=== PATIENT | female | born 1970 | race Caucasian/White ===

== ENCOUNTER 2018-03-08 14:40 | Emergency (ER) | payer BC ==
[2018-03-08 15:06] VITALS: BP 96/47
[2018-03-08] MEDS ORDERED: Ketorolac 60 MG/2 ML SDV IM ONE (15:32)
[2018-03-08] MEDS ORDERED: diphenhydrAMINE 50 MG/ML SDV IM ONE (15:33)
[2018-03-08] MEDS ORDERED: Metoclopramide 10 MG/2 ML SDV IM ONE (15:33)
--- NOTE | 2018-03-08 15:38 | EDM.PDOC ---
ED HPI GENERAL MEDICAL PROBLEM - General Chief Complaint: Headache Stated Complaint: MIGRAINE Time Seen by Provider: 03/08/18 15:25 Source of Information: Reports: Patient History Limitations: Reports: No Limitations - History of Present Illness INITIAL COMMENTS - FREE TEXT/NARRATIVE: Has had a migraine for the last 4 days. Did try her imitrex last night without any relief. Contacted her PCP who is Dr. Hung in [place] as he manages her suboxone. He told her that she could not use that any longer. She has tried some OTC meds without improvement. Migraine is her typical migraine that effects her left eye and left side of head. Does have some photophobia and nausea with it. Onset: Gradual Duration: Day(s): (4) Location: Reports: Head Quality: Reports: Pressure, Throbbing Severity: Severe Associated Symptoms: Reports: Headaches, Nausea/Vomiting. Denies: Fever/Chills Headache Pain Score (Numeric/FACES): 8 - Related Data Allergies Allergy/AdvReac Type Severity Reaction Status Date / Time avocado Allergy Anaphylactic Verified 05/12/16 20:50 Shock Latex, Natural Rubber Allergy Hives Verified 05/12/16 20:50 morphine Allergy Hallucinati Verified 05/12/16 20:50 ons venom-honey bee Allergy Anaphylactic Verified 05/12/16 20:50 [bee venom (honey bee)] Shock Home Meds: Home Meds Citalopram Hydrobromide [Celexa] 40 mg PO DAILY 02/01/15 [History] Cyanocobalamin/Folic AC/Vit B6 [Folbee] 1 each PO DAILY 02/01/15 [History] Cyclobenzaprine [Flexeril] 10 mg PO TID PRN 02/01/15 [History] EPINEPHrine [Epipen] 0.3 mg IM ONETIME PRN 02/01/15 [History] Gabapentin [Neurontin] 600 mg PO TID 02/01/15 [History] Hydrochlorothiazide 25 mg PO DAILY 02/01/15 [History] LORazepam [Ativan] 0.5 mg PO Q6H PRN 02/01/15 [History] Methylphenidate HCl 10 - 20 mg PO BID 02/01/15 [History] Methylphenidate HCl 20 mg PO DAILY PRN 02/01/15 [History] Multivitamin [Multivitamins] 1 each PO DAILY 02/01/15 [History] Ondansetron 4 mg PO Q4H PRN 02/01/15 [History] traZODone 50 - 100 mg PO BEDTIME 02/01/15 [History] Desipramine HCl 25 mg PO DAILY 06/24/15 [History] Ascorbic Acid [Vitamin C] 500 mg PO DAILY 01/15/16 [History] Buprenorphine HCl/Naloxone HCl [Suboxone 4 mg-1 mg Sl Film] 4 mg PO BID [History] Chromium Picolinate 1,000 mcg PO DAILY 01/15/16 [History] Escitalopram Oxalate [Lexapro] 20 mg PO DAILY 01/15/16 [History] Past Medical History Cardiovascular History: Reports: Hypertension Gastrointestinal History: Reports: Chronic Constipation Genitourinary History: Reports: UTI, Recurrent 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: Reports: Endometriosis, Musculoskeletal History: Reports: Amputation Other Musculoskeletal History: phantom pain Psychiatric History: Reports: Addiction, Anxiety, Depression Endocrine/Metabolic History: Reports: Obesity/BMI 30+, Vitamin D Deficiency - Past Surgical History GI Surgical History: Reports: Bariatric Procedure, Hernia, Abdominal, Amy Fundoplication Female Surgical History: Reports: Section, Hysterectomy Social & Family History - Tobacco Use Smoking Status *Q: Former Smoker - Living Situation & Occupation Living situation: Reports: , with Family Occupation: Employed ED ROS GENERAL - Review of Systems Review Of Systems: See Below Constitutional: Denies: Fever, Chills HEENT: Reports: Vision Change (left eye) Respiratory: Reports: No Symptoms Cardiovascular: Reports: No Symptoms GI/Abdominal: Reports: Nausea Musculoskeletal: Reports: No Symptoms Skin: Reports: No Symptoms Neurological: Reports: Headache. Denies: Numbness, Tingling - Physical Exam Exam: See Below Exam Limited By: No Limitations General Appearance: Alert, WD/WN, Moderate Distress Ears: Normal External Exam, Normal Canal, Normal TMs Nose: Normal Inspection Throat/Mouth: Normal Inspection, Normal Oropharynx Head Exam: Atraumatic, Normocephalic Neck: Normal Inspection, Supple, Non-Tender, Full Range of Motion Respiratory/Chest: No Respiratory Distress, Lungs Clear, Normal Breath Sounds GI/Abdominal: Normal Bowel Sounds Extremities: No Pedal Edema Skin Exam: Warm, Dry, Intact Course - Vital Signs Last Recorded V/S: Last Vital Signs Temp 98.1 F 03/08/18 15:04 Pulse 85 03/08/18 15:04 Resp 20 03/08/18 15:04 BP 96/47 L 03/08/18 15:04 Pulse Ox 99 03/08/18 15:04 Departure - Departure Time of Disposition: 15:41 Disposition: Home, Self-Care 01 Condition: Good Clinical Impression: Migraine - Discharge Information *PRESCRIPTION DRUG MONITORING PROGRAM REVIEWED*: No *COPY OF PRESCRIPTION DRUG MONITORING REPORT IN PATIENT TIANA: No Instructions: Migraine Headache, [id number] Additional Instructions: 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
== END 2018-03-08 16:35 | disposition home or self-care (01) ==
LOC: CC.ED 14:40
DX: G43.909 Migraine, unspecified, not intractable, without status migrainosus (principal); I10 Essential (primary) hypertension; F41.9 Anxiety disorder, unspecified; F32.9 Major depressive disorder, single episode, unspecified; Z87.891 Personal history of nicotine dependence; Z91.040 Latex allergy status; Z88.5 Allergy status to narcotic agent; Z91.030 Bee allergy status; Z79.899 Other long term (current) drug therapy
CPT/HCPCS: 96372; 99283; J1200; J1885; J2765

== ENCOUNTER 2018-03-31 12:18 | Emergency (ER) | payer BC ==
[2018-03-31] MEDS ORDERED: Pantoprazole 40 MG Tab.CR PO ONE (12:19)
[2018-03-31] MEDS ORDERED: Nitroglycerin 0.4 MG Tab.SL SL ONE (12:32)
--- NOTE | 2018-03-31 12:56 | EDM.PDOC ---
ED HPI GENERAL MEDICAL PROBLEM - General Chief Complaint: Chest Pain Stated Complaint: CHEST PAIN Time Seen by Provider: 03/31/18 12:50 - History of Present Illness INITIAL COMMENTS - FREE TEXT/NARRATIVE: Essie is a 47 year old female who presents to the ED with c/o left sided chest pain. She reports the pain started yesterday morning. She describes the pain as sharp. She reports she has also had some right shoulder pain and tarun-oral paresthesias. These have resolved. She reports for the past week or so she has been nauseated and had a decreased appetite. Has had some occasional dizziness. Denies any fever, chills, vomiting, diarrhea, constipation, shortness of breath. Denies any blood in her stools. She denies any significant cardiovascular history. 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 Does gave history of PTSD and depression as well. Recently diagnosed with hypothyroidism. Onset Date: 03/30/18 Onset Time: 04:00 Duration: Intermittent Location: Reports: Chest Quality: Reports: Sharp Severity: Moderate Improves with: Reports: None Worsens with: Reports: None Associated Symptoms: Reports: Chest Pain, Loss of Appetite, Nausea/Vomiting ( nausea, no vomiting). Denies: Confusion, Cough, cough w sputum, Diaphoresis, Fever/Chills, Headaches, Rash, Seizure, Shortness of Breath, Syncope, Weakness Right Chest Pain Score (Numeric/FACES): 6 - Related Data Allergies Allergy/AdvReac Type Severity Reaction Status Date / Time avocado Allergy Anaphylactic Verified 03/31/18 12:59 Shock Latex, Natural Rubber Allergy Hives Verified 03/31/18 12:59 morphine Allergy Hallucinati Verified 03/31/18 12:59 ons venom-honey bee Allergy Anaphylactic Verified 03/31/18 12:59 [bee venom (honey bee)] Shock Home Meds: Home Meds Cyclobenzaprine [Flexeril] 10 mg PO TID PRN 02/01/15 [History] EPINEPHrine [Epipen] 0.3 mg IM ONETIME PRN 02/01/15 [History] Gabapentin [Neurontin] 600 mg PO BID 02/01/15 [History] Hydrochlorothiazide 25 mg PO DAILY 02/01/15 [History] Methylphenidate HCl 10 - 20 mg PO BID 02/01/15 [History] Multivitamin [Multivitamins] 1 each PO DAILY 02/01/15 [History] Ondansetron 4 mg PO Q4H PRN 02/01/15 [History] traZODone 50 - 100 mg PO BEDTIME 02/01/15 [History] Buprenorphine HCl/Naloxone HCl [Suboxone 4 mg-1 mg Sl Film] 8 mg PO TID [History] Chromium Picolinate 1,000 mcg PO DAILY 01/15/16 [History] Escitalopram Oxalate [Lexapro] 20 mg PO DAILY 01/15/16 [History] Black Cohosh 540 mg PO DAILY 03/31/18 [History] Omeprazole 20 mg PO DAILY 03/31/18 [History] Pantoprazole Sodium [Protonix] 40 mg PO DAILY 42 Days #42 tablet. 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: Reports: Endometriosis, Musculoskeletal History: Reports: Amputation Other Musculoskeletal History: phantom pain Psychiatric History: Reports: Addiction, Anxiety, Depression Endocrine/Metabolic History: Reports: Obesity/BMI 30+, Vitamin D Deficiency - Past Surgical History GI Surgical History: Reports: Bariatric Procedure, Hernia, Abdominal, Amy Fundoplication Female Surgical History: Reports: Section, Hysterectomy Social & Family History - Living Situation & Occupation Living situation: Reports: , with Family Occupation: Employed ED [facility] GENERAL - Review of Systems Review Of Systems: See Below Constitutional: Reports: Decreased Appetite. Denies: Fever, Chills, Weakness, Fatigue HEENT: Reports: No Symptoms Respiratory: Reports: No Symptoms. Denies: Shortness of Breath, Wheezing, Pleuritic Chest Pain, Cough, Sputum, Hemoptysis Cardiovascular: Reports: Chest Pain, Lightheadedness. Denies: Blood Pressure Problem, Dyspnea on Exertion, Edema, Orthopnea, Palpitations, Syncope Endocrine: Reports: Fatigue GI/Abdominal: Reports: Abdominal Pain (epigastric), Decreased Appetite, Nausea. Denies: Black Stool, Bloody Stool, Constipation, Diarrhea, Hematemesis, Vomiting : Reports: No Symptoms. Denies: Dysuria, Frequency, Urgency Musculoskeletal: Reports: Shoulder Pain (right) Skin: Reports: No Symptoms Neurological: Reports: Dizziness. Denies: Headache, Numbness, Tingling, Weakness Psychiatric: Reports: Anxiety, Depression Hematologic/Lymphatic: Reports: No Symptoms Immunologic: Reports: No Symptoms ED EXAM, GENERAL - Physical Exam Exam: See Below Exam Limited By: No Limitations General Appearance: Alert, WD/WN, No Apparent Distress, Anxious Eye Exam: Bilateral Eye: EOMI, Normal Fundi, Normal Inspection, PERRL Ears: Normal External Exam, Normal Canal, Hearing Grossly Normal, Normal TMs Nose: Normal Inspection, Normal Mucosa, No Blood Throat/Mouth: Normal Inspection, Normal Lips, Normal Teeth, Normal Gums, Normal Oropharynx, Normal Voice, No Airway Compromise Head: Atraumatic, Normocephalic Neck: Normal Inspection, Supple, Non-Tender, Full Range of Motion Respiratory/Chest: No Respiratory Distress, Lungs Clear, Normal Breath Sounds, No Accessory Muscle Use, Chest Non-Tender Cardiovascular: Normal Peripheral Pulses, Regular Rate, Rhythm, No Edema, No Gallop, No JVD, No Murmur, No Rub, Tachycardia Peripheral Pulses: 2+: Dorsalis Pedis (L), Dorsalis Pedis (R) GI/Abdominal: Normal Bowel Sounds, Soft, No Organomegaly, No Distention, No Abnormal Bruit, No Mass, Tender (epigastric area) Back Exam: Normal Inspection, Full Range of Motion, NT Extremities: Normal Inspection, Normal Range of Motion, Non-Tender, Normal Capillary Refill, No Pedal Edema Neurological: Alert, Oriented, CN II-XII Intact, Normal Cognition, Normal Gait, Normal Reflexes, No Motor/Sensory Deficits Psychiatric: Anxious, Tearful Skin Exam: Warm, Dry, Intact, Normal Color, No Rash Lymphatic: No Adenopathy Course - Vital Signs Last Recorded V/S: Last Vital Signs Temp 99.3 F 03/31/18 12:20 Pulse 98 03/31/18 13:10 Resp 18 03/31/18 12:35 BP 113/86 03/31/18 13:10 Pulse Ox 97 03/31/18 12:35 - Orders/Labs/Meds Orders: Active Orders 24 hr Category Date Time Status Chest 2V [CR] Stat Exams 03/31/18 13:11 Taken Pantoprazole [ProTONIX IV] Med 03/31/18 13:30 Active 40 mg IVPUSH Q24H Medication Orders Pantoprazole Sodium (Protonix Iv) 40 mg IVPUSH Q24H YESENIA Last Admin: 03/31/18 13:28 Dose: 40 mg Labs: Laboratory Tests 03/31/18 03/31/18 03/31/18 Range/Units 12:27 12:27 12:27 WBC 10.5 H (5.0-10.0) 10^3/uL RBC 4.65 (4.00-5.50) 10^6/uL Hgb 13.6 (12.0-16.0) g/dL Hct 38.5 (37.0-47.0) % MCV 82.8 (82.0-94.0) fL MCH 29.2 (27.0-32.0) pg MCHC 35.3 (33.0-38.0) g/dL RDW Coeff of Sharon 12.4 (11.0-15.0) % Plt Count 309 (150-400) 10^3/uL Neut % (Auto) 46.1 (35-85) % Lymph % (Auto) 44.6 (10-55) % Walker % (Auto) 6.7 (0-16) % Eos % (Auto) 2.3 (0-5) % Baso % (Auto) 0.3 (0-3) % Neut # (Auto) 4.83 (1.80-7.00) 10^3/uL Lymph # (Auto) 4.67 (1.00-4.80) 10^3/uL Walker # (Auto) 0.70 (0.00-0.80) 10^3/uL Eos # (Auto) 0.24 (0.00-0.45) 10^3/uL Baso # (Auto) 0.03 10^3/uL PT 9.7 (9.7-12.3) SEC INR 0.93 (0.92-1.18) Sodium 141 (136-145) mEq/L Potassium 3.0 L D (3.5-5.0) mEq/L Chloride 102 (98-106) mEq/L Carbon Dioxide 30 (21-32) mmol/L BUN 13 D (7-18) mg/dL Creatinine 0.9 (0.6-1.0) mg/dL Est Cr Clr Drug Dosing 75.15 mL/min Estimated GFR (MDRD) > 60 (>=60) mL/min Glucose 106 H (75-99) mg/dL Calcium 8.9 (8.4-10.1) mg/dL Lactate Dehydrogenase 152 (100-190) U/L Creatine Kinase 101 (21-215) U/L Troponin I < 0.017 (0.00-0.06) ng/mL TSH, Ultra Sensitive (0.36-5.60) uIU/mL 03/31/18 Range/Units 12:46 WBC (5.0-10.0) 10^3/uL RBC (4.00-5.50) 10^6/uL Hgb (12.0-16.0) g/dL Hct (37.0-47.0) % MCV (82.0-94.0) fL MCH (27.0-32.0) pg MCHC (33.0-38.0) g/dL RDW Coeff of Sharon (11.0-15.0) % Plt Count (150-400) 10^3/uL Neut % (Auto) (35-85) % Lymph % (Auto) (10-55) % Walker % (Auto) (0-16) % Eos % (Auto) (0-5) % Baso % (Auto) (0-3) % Neut # (Auto) (1.80-7.00) 10^3/uL Lymph # (Auto) (1.00-4.80) 10^3/uL Walker # (Auto) (0.00-0.80) 10^3/uL Eos # (Auto) (0.00-0.45) 10^3/uL Baso # (Auto) 10^3/uL PT (9.7-12.3) SEC INR (0.92-1.18) Sodium (136-145) mEq/L Potassium (3.5-5.0) mEq/L Chloride (98-106) mEq/L Carbon Dioxide (21-32) mmol/L BUN (7-18) mg/dL Creatinine (0.6-1.0) mg/dL Est Cr Clr Drug Dosing mL/min Estimated GFR (MDRD) (>=60) mL/min Glucose (75-99) mg/dL Calcium (8.4-10.1) mg/dL Lactate Dehydrogenase (100-190) U/L Creatine Kinase (21-215) U/L Troponin I (0.00-0.06) ng/mL TSH, Ultra Sensitive 2.78 (0.36-5.60) uIU/mL Meds: Medications Generic Name Dose Route Start Last Admin Trade Name Freq PRN Reason Stop Dose Admin Pantoprazole Sodium 40 mg 03/31/18 13:30 03/31/18 13:28 Protonix Iv IVPUSH 40 mg Q24H YESENIA Administration Discontinued Medications Generic Name Dose Route Start Last Admin Trade Name Freq PRN Reason Stop Dose Admin Nitroglycerin 0.4 mg 03/31/18 12:32 03/31/18 12:33 Nitrostat SL 03/31/18 12:33 0.4 mg ONETIME ONE Administration - Re-Assessments/Exams Free Text/Narrative Re-Assessment/Exam: 03/31/18 13:00 Discussed lab, xray, and EKG findings with patient. Cardiac enzymes are normal. EKG shows sinus tachycardia. 03/31/18 13:45 Discussed discharge recommendations with patient. Patient reports sharp stabbing pain has resolved after protonix. Does continue to have burning pain in mid chest. Departure - Departure Time of Disposition: 13:53 Disposition: Home, Self-Care 01 Condition: Good Clinical Impression: Esophagitis Gastroesophageal reflux disease Qualifiers: Esophagitis presence: with esophagitis Qualified Code(s): K21.0 - Gastro- esophageal reflux disease with esophagitis Instructions: Food Choices for Gastroesophageal Reflux Disease, Adult, Easy-to- Read, Gastroesophageal Reflux Disease, Adult Referrals: Florencio Hung DO [Ordering Only Provider] - Forms: ED Department Discharge Additional Instructions: 1) Protonix daily x 6 weeks. Stop omeprazole. 2) Carafate 30 minutes prior to meals and at bedtime x 7 days 3) Avoid spicy/greasy foods, caffeine. GERD food choices per handout. 4) No NSAIDS 5) Recommend starting 20 meq potassium supplement daily 6) Follow up for recheck in clinic in 5 days, sooner if symptoms worsen - My Orders Last 24 Hours: My Active Orders 03/31/18 13:11 Chest 2V [CR] Stat 03/31/18 13:30 Pantoprazole [ProTONIX IV] 40 mg IVPUSH Q24H - Assessment/Plan Last 24 Hours: My Active Orders 03/31/18 13:11 Chest 2V [CR] Stat 03/31/18 13:30 Pantoprazole [ProTONIX IV] 40 mg IVPUSH Q24H
[2018-03-31 13:08] LABS: CHLORIDE,CL 102 mEq/L (98-106); SODIUM,NA 141 mEq/L (136-145)
[2018-03-31 13:13] VITALS: BP 113/86
[2018-03-31] MEDS ORDERED: Pantoprazole 40 MG Vial IVPUSH SCH (13:30)
[2018-03-31] MEDS ORDERED: Take Home: Pantoprazole 40 MG Tab.CR, 1 Tab Pack PO ONE (13:57)
[2018-03-31] MEDS ORDERED: Sucralfate 1 GM Tab ONE (14:13)
[2018-03-31] MEDS ORDERED: Sucralfate 1 GM Tab PO SCH (17:00)
== END 2018-03-31 14:15 | disposition home or self-care (01) ==
LOC: CC.ED 12:18
DX: K21.0 Gastro-esophageal reflux disease with esophagitis (principal); I10 Essential (primary) hypertension; F41.9 Anxiety disorder, unspecified; F32.9 Major depressive disorder, single episode, unspecified; Z79.899 Other long term (current) drug therapy; Z91.018 Allergy to other foods; Z91.040 Latex allergy status; Z88.5 Allergy status to narcotic agent; Z91.030 Bee allergy status
CPT/HCPCS: 36415; 71046; 80048; 82550; 83615; 84443; 84484; 85025; 85610; 93005; 96374; 99285; A9270; C9113

== ENCOUNTER 2021-01-11 19:00 | Emergency (ER) | payer OTHER, BC ==
[2021-01-11 19:19] VITALS: PULSE 105
[2021-01-11] MEDS: Lidocaine/Prilocaine 2.5-2.5% Crm 5 GM Tube TOP ONE (19:31)
[2021-01-11 19:37] VITALS: BP 127/94
[2021-01-11] MEDS: Bacitracin/Neomycin/Polymyxin B Oint 0.9 GM U/D Packet TOP ONE (20:13)
--- NOTE | 2021-01-11 20:16 | EDM.PDOC ---
ED HPI GENERAL MEDICAL PROBLEM - General Chief Complaint: Laceration Stated Complaint: cut finger Time Seen by Provider: 01/11/21 19:40 Source of Information: Reports: Patient History Limitations: Reports: No Limitations - History of Present Illness INITIAL COMMENTS - FREE TEXT/NARRATIVE: Essie is a 50 yo female who presents to the to ER with concerns of a cut between her right thumb and index finger. States she was washing the rim of a glass that had a piece out of it and in cut the web between her fingers. Thought about using steri strips but was worried it wasn't closed. Tdap is up to date. Right Hand Pain Score (Numeric/FACES): 5 - Related Data Allergies Allergy/AdvReac Type Severity Reaction Status Date / Time avocado Allergy Anaphylactic Verified 01/11/21 19:12 Shock Latex, Natural Rubber Allergy Hives Verified 01/11/21 19:12 morphine Allergy Hallucinati Verified 01/11/21 19:12 ons venom-honey bee Allergy Anaphylactic Verified 01/11/21 19:12 [bee venom (honey bee)] Shock Home Meds: Home Meds Cyclobenzaprine [Flexeril] 10 mg PO TID PRN 02/01/15 [History] EPINEPHrine [Epipen] 0.3 mg IM ONETIME PRN 02/01/15 [History] Gabapentin [Neurontin] 600 mg PO BID 02/01/15 [History] Hydrochlorothiazide 25 mg PO DAILY 02/01/15 [History] Methylphenidate HCl 10 - 20 mg PO BID 02/01/15 [History] Multivitamin [Multivitamins] 1 each PO DAILY 02/01/15 [History] Ondansetron 4 mg PO Q4H PRN 02/01/15 [History] traZODone 50 - 100 mg PO BEDTIME 02/01/15 [History] Buprenorphine HCl/Naloxone HCl [Suboxone 4 mg-1 mg Sl Film] 8 mg PO TID 01/15/16 [History] Chromium Picolinate 1,000 mcg PO DAILY 01/15/16 [History] Escitalopram Oxalate [Lexapro] 20 mg PO DAILY 01/15/16 [History] Black Cohosh 540 mg PO DAILY 03/31/18 [History] Omeprazole 20 mg PO DAILY 03/31/18 [History] Pantoprazole Sodium [Protonix] 40 mg PO DAILY 42 Days #42 tablet. 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, Musculoskeletal History: Reports: Amputation Other Musculoskeletal History: phantom pain Psychiatric History: Reports: Addiction, Anxiety, Depression Endocrine/Metabolic History: Reports: Obesity/BMI 30+, Vitamin D Deficiency - Infectious Disease History Infectious Disease History: Reports: None - Past Surgical History GI Surgical History: Reports: Bariatric Procedure, Hernia, Abdominal, Amy Fundoplication Female Surgical History: Reports: Section, Hysterectomy Endocrine Surgical History: Reports: None Musculoskeletal Surgical History: Reports: Amputation Other Musculoskeletal Surgeries/Procedures:: RIGHT BKA Social & Family History - Family History Family Medical History: No Pertinent Family History - Tobacco Use Tobacco Use Status *Q: Never Tobacco User - Recreational Drug Use Recreational Drug Use: No - Living Situation & Occupation Living situation: Reports: , with Family Occupation: Employed ED ROS GENERAL - Review of Systems Review Of Systems: Comprehensive ROS is negative, except as noted in HPI. ED EXAM, SKIN/RASH Exam: See Below Exam Limited By: No Limitations General Appearance: Alert, No Apparent Distress Skin: Wound/Incision (2.5cm laceration to the base between 1st and 2nd digits. ) ED SKIN PROCEDURES - Laceration/Wound Repair Right Side Proximal Digit - 1st (Thumb) Appearance: Subcutaneous, Linear, Clean Distal NVT: Neuro & Vascular Intact, No Tendon Injury Anesthetic Type: Local Local Anesthesia - Lidocaine (Xylocaine): 1% Plain Local Anesthetic Volume: 3cc Skin Prep: Chlorhexidine (Hibiciens), Sterile Drape Exploration/Debridement/Repair: Wound Explored, In a Bloodless Field, Explored to Base Closed with: Sutures Lac/Wound length In cm: 2.5 Suture Size: 4-0 # of Sutures: 5 Suture Type: Prolene, Interrupted, Simple Tetanus Status Addressed: Yes Complications: No Course - Vital Signs Last Recorded V/S: Last Vital Signs Temp 97.9 F 01/11/21 19:13 Pulse 105 H 01/11/21 19:13 Resp 19 01/11/21 19:13 BP 127/94 H 01/11/21 19:36 Pulse Ox 95 01/11/21 19:13 - Orders/Labs/Meds Meds: Medications Discontinued Medications Generic Name Dose Route Start Last Admin Trade Name Gloria PRN Reason Stop Dose Admin Lidocaine HCl 5 ml 01/11/21 19:28 01/11/21 19:32 Lidocaine 1% 5 Ml Sdv INJECT 01/11/21 19:29 5 ml ONETIME ONE Administration Lidocaine/Prilocaine 0.1 gm 01/11/21 19:27 01/11/21 19:31 Lidocaine/Prilocaine 2.5-2.5% Crm 5 Gm Tube TOP 01/11/21 19:28 0.1 gm ONETIME ONE Administration Departure - Departure Time of Disposition: 20:14 Disposition: Home, Self-Care 01 Clinical Impression: Laceration of right hand Qualifiers: Encounter type: initial encounter Foreign body presence: without foreign body Qualified Code(s): S61.411A - Laceration without foreign body of right hand, initial encounter - Discharge Information Instructions: Laceration Care, Adult, [id number] Referrals: Kirsten Rivera, METAL INSPECTOR [Primary Care Provider] - Additional Instructions: 1) Keep incision clean and dry for 48 hours. 2) Do not soak hand 3) Sutures out in 10-14 days 4) Watch for any signs of infection (increased redness, swelling, warmth, drainage, etc..). 5) Recommend taking Tylenol and or ibuprofen for discomfort. 6) Call or return with any questions or concerns. Sepsis Event Note (ED) - Evaluation Sepsis Screening Result: No Definite Risk - Focused Exam Vital Signs: Vital Signs Temp Pulse Resp BP Pulse Ox 01/11/21 19:36 127/94 H 01/11/21 19:13 97.9 F 105 H 19 137/97 H 95 - Problem List & Annotations (1) Laceration of right hand SNOMED Code(s): 260192916, [id number] Code(s): S61.411A - LACERATION WITHOUT FOREIGN BODY OF RIGHT HAND, INIT ENCNTR Status: Acute Current Visit: Yes Qualifiers: Encounter type: initial encounter Foreign body presence: without foreign body Qualified Code(s): S61.411A - Laceration without foreign body of right hand, initial encounter - Assessment/Plan Plan: discussed wound closure with Essie. Elected to proceed with sutures. Wound closed with excellent reapproximation of wound edges. No complications. See additional instructions.
== END 2021-01-11 20:20 | disposition home or self-care (01) ==
LOC: CC.ED 19:00
DX: S61.011A Laceration without foreign body of right thumb without damage to nail, initial encounter (principal); S61.210A Laceration without foreign body of right index finger without damage to nail, initial encounter; I10 Essential (primary) hypertension; E66.9 Obesity, unspecified; Z68.41 Body mass index [BMI] 40.0-44.9, adult; Z88.5 Allergy status to narcotic agent; Z91.030 Bee allergy status; Z91.040 Latex allergy status; Z88.8 Allergy status to other drugs, medicaments and biological substances; Z79.899 Other long term (current) drug therapy; W25.XXXA Contact with sharp glass, initial encounter
CPT/HCPCS: 12001; 99282; A9270

== ENCOUNTER → 2021-01-22 | Day surgery (SDC) | payer BC, OTHER ==
[~2021-01-22] MED LIST: Ketamine 200 MG/20 ML MDV ONE; Lactated Ringers 1,000 ML IV SCH; Metoclopramide 10 MG/2 ML SDV ONE; Midazolam 1 MG/ML 2 ML SDV ONE; Phenylephrine 1% 10 MG/ML SDV ONE; Propofol 200 MG/20 ML SDV ONE
[2021-01-22 11:53] VITALS: BP 117/69; PULSE 101
--- NOTE | 2021-01-22 14:13 | OR ---
DATE OF OPERATION: 01/22/2021 PREOPERATIVE DIAGNOSIS: SCREENING COLONOSCOPY. POSTOPERATIVE DIAGNOSIS: SCREENING COLONOSCOPY. SURGEON: Ariel Lopez MD PROCEDURE: FULL-LENGTH COLONOSCOPY. ANESTHESIA: MAC. COMPLICATIONS: None. SPECIMEN: None. FINDINGS: Normal full-length colonoscopy. RECOMMENDATIONS: Followup colonoscopy in 10 years. INDICATIONS: The patient was seen for routine screening colonoscopy due to her age. DESCRIPTION OF PROCEDURE: The patient was prepped and draped, placed in the left lateral decubitus position. A lubricated Olympus colonoscope was inserted and with ease advanced to the cecum. Direct visualization of the ileocecal valve and appendiceal orifice was accomplished. The bowel prep was adequate. Upon withdrawal of the scope throughout the entire length of the colon, I could find no polyps, masses, ulceration, or bleeding sites. No vascular abnormalities or signs of colitis. There were no diverticula. The rectal vault was benign. Retroflexion of the scope in the rectum showed no anal lesions. Air was suctioned and the scope removed without complication. JOSE LUIS/МАРИЯ /[id number]
== END ==
LOC: CC.SDS 09:42
PROVIDERS: ATTEND Family Medicine
DX: Z12.11 Encounter for screening for malignant neoplasm of colon (principal); I10 Essential (primary) hypertension; E03.9 Hypothyroidism, unspecified; G47.33 Obstructive sleep apnea (adult) (pediatric); K21.9 Gastro-esophageal reflux disease without esophagitis; J30.9 Allergic rhinitis, unspecified; F41.9 Anxiety disorder, unspecified; G89.29 Other chronic pain; G47.00 Insomnia, unspecified; Z88.5 Allergy status to narcotic agent; Z91.030 Bee allergy status; Z79.899 Other long term (current) drug therapy; Z98.890 Other specified postprocedural states; Z87.891 Personal history of nicotine dependence
CPT/HCPCS: 45378; J2250; J2370; J2704; J2765; J7120

== ENCOUNTER 2023-04-30 18:01 | Emergency (ER) | payer BC ==
[2023-05-01 11:10] VITALS: BP 138/68; PULSE 78
== END 2023-04-30 19:00 | disposition home or self-care (01) ==
LOC: CC.ED 18:01
DX: N93.9 Abnormal uterine and vaginal bleeding, unspecified (principal); I10 Essential (primary) hypertension; Z91.040 Latex allergy status; Z91.018 Allergy to other foods; Z91.030 Bee allergy status; Z88.5 Allergy status to narcotic agent; Z79.899 Other long term (current) drug therapy
CPT/HCPCS: 99283; 99284

== ENCOUNTER 2024-01-04 19:29 | Emergency (ER) | payer OTHER ==
[2024-01-04 19:47] VITALS: BP 140/89; PULSE 105
[2024-01-04 20:00] LABS: APPEARANCE,URINE CLEAR (CLEAR); BILIRUBIN,URINE NEGATIVE (NEGATIVE); COLOR,URINE YELLOW (YELLOW); GLUCOSE,URINE NEGATIVE (NEGATIVE); KETONES,URINE NEGATIVE (NEGATIVE); LEUKOCYTE ESTERASE,URINE NEGATIVE (NEGATIVE); NITRITE,URINE NEGATIVE (NEGATIVE); OCCULT BLOOD,URINE NEGATIVE (NEGATIVE); PH,URINE 5.5 (4.5-8.0); PROTEIN,URINE NEGATIVE (NEGATIVE); UROBILINOGEN,URINE 0.2 EU/dL (0.2-1.0)
[2024-01-04 20:05] LABS: RBC,URINE NOT SEEN /HPF (0-5); WBC,URINE NOT SEEN /HPF (0-5)
[2024-01-04 20:06] LABS: BACTERIA,URINE NOT SEEN /HPF (NOT SEEN); EPITHELIAL CELLS,URINE RARE /HPF (NOT SEEN); MUCUS,URINE NOT SEEN /HPF (NOT SEEN)
[2024-01-04 20:23] LABS: BASOPHILS ABSOLUTE AUTO 0.06 10^3/uL (0.00-0.50); BASOPHILS PERCENT AUTO 0.6 % (0-1); EOSINOPHILS ABSOLUTE AUTO 0.32 10^3/uL (0.00-1.50); EOSINOPHILS PERCENT AUTO 3.4 % (0-6); HEMATOCRIT 39.3 % (37.0-47.0); HEMOGLOBIN 13.3 g/dL (12.0-16.0); IMMATURE GRAN ABSOLUTE AUTO 0.01 10^3/uL (0.00-0.49); IMMATURE GRAN PERCENT AUTO 0.1 % (0.0-4.9); LYMPHOCYTES PERCENT AUTO 25.5 % (24-44); MEAN CORPUSCULAR HGB CONC 33.8 g/dL (32.0-36.0); MEAN CORPUSCULAR VOLUME 85.8 fL (83.0-97.0); MONOCYTES ABSOLUTE AUTO 0.65 10^3/uL (0.00-1.50); MONOCYTES PERCENT AUTO 6.9 % (0-10); NEUTROPHILS ABSOLUTE AUTO 5.97 x10^3/uL (1.80-8.00); NEUTROPHILS PERCENT AUTO 63.5 % (41-71); PLATELET COUNT,PLT 347 10^3/uL (150-400); RED BLOOD CELL COUNT 4.58 x10^6/uL (4.00-5.50); WHITE BLOOD CELL COUNT,WBC 9.4 10^3/uL (4.0-11.0)
[2024-01-04 20:36] LABS: ALANINE AMINOTRANSFERASE,ALT 33 U/L (12-78); ALBUMIN 3.7 g/dL (3.4-5.0); ALKALINE PHOSPHATASE 108 U/L (46-116); ASPARTATE AMNIOTRANSFERASE,AST 27 U/L (15-37); BILIRUBIN TOTAL 0.4 mg/dL (0.0-1.0); BLOOD UREA NITROGEN,BUN 14 mg/dL (7-18); CALCIUM 9.5 mg/dL (8.4-10.1); CARBON DIOXIDE,CO2 32 mmol/L (21-32); CHLORIDE,CL 102 mEq/L (98-106); CREATININE 0.9 mg/dL (0.6-1.0); EST CRCL DRUG DOSING (CG) 65.05 mL/min; GLUCOSE RANDOM 97 mg/dL (75-99); POTASSIUM,K 3.9 mEq/L (3.5-5.0); SODIUM,NA 141 mEq/L (136-145)
[2024-01-04 20:37] LABS: C-REACTIVE PROTEIN < 0.50 mg/dL (<=0.50); ESTIMATED GFR 76 mL/min (>=60)
[2024-01-04 20:57] LABS: CORONAVIRUS COVID-19 NAA NEGATIVE (NEGATIVE); INFLUENZA A NAA NEGATIVE (NEGATIVE); INFLUENZA B NAA NEGATIVE (NEGATIVE); RESPIRATORY SYNCYTIAL VIR NAA NEGATIVE (NEGATIVE)
[2024-01-04] MEDS: Iopamidol 755 Mg/ML 100 ML Bottle IVPUSH ONE (21:36)
== END 2024-01-04 22:52 | disposition home or self-care (01) ==
LOC: CC.ED 19:29
DX: R10.9 Unspecified abdominal pain (principal); R39.15 Urgency of urination; I10 Essential (primary) hypertension; E66.9 Obesity, unspecified; Z90.710 Acquired absence of both cervix and uterus; Z79.899 Other long term (current) drug therapy; Z91.030 Bee allergy status; Z91.018 Allergy to other foods; Z91.040 Latex allergy status; Z88.5 Allergy status to narcotic agent; Z68.41 Body mass index [BMI] 40.0-44.9, adult
CPT/HCPCS: 0241U; 36415; 74177; 80053; 81001; 85025; 86140; 99284; Q9967